=== PATIENT | male | born 1995 | race Hispanic/Latino ===

== ENCOUNTER 2019-04-12 20:57 | Emergency (ER) | payer OTHER ==
[~2019-04-12] VITALS: Ht 170.2 cm; Wt 66.4 kg
[2019-04-12 21:08] VITALS: BP 130/81
== END 2019-04-12 21:42 | disposition home or self-care (01) ==
LOC: M ED 20:57
DX: F10.239 Alcohol dependence with withdrawal, unspecified (principal)